=== PATIENT | male | born 1945 | race Caucasian/White ===

== ENCOUNTER 2017-06-29 12:19 | Emergency (ER) | payer OTHER ==
[~2017-06-29] VITALS: Ht 185.4 cm; Wt 104.3 kg
[~2017-06-29 12:19] MED LIST: ANTIVERT25 MG PO; ASPIR 8181 MG; ASPIRIN325 PO; ATORVASTATIN CA40 MG PO; TOPROL XL25 MG PO; ZOFRAN ODT4 MG PO
[2017-06-29] MEDS ORDERED: ELIQUIS5 MG PO (13:03)
[2017-06-29 13:50] LABS: ABSOLUTE NEUTROPHILS 2.1 thou/uL (1.4-8.2); BASOPHILS 0.4 % (0.0-2.0); HEMATOCRIT 42.6 % (42.0-52.0); HEMOGLOBIN 14.9 gm/dL (14.0-18.0); LYMPHOCYTES 20.1 % (24.0-44.0); MCH 29.5 pg (26.0-34.0); MCHC 34.9 g/dL (28.0-37.0); MCV 84.5 fL (80.0-100.0); MONOCYTES 9.9 % (1.0-8.0); PLATELET COUNT 139 thou/uL (150-400); POLYS 69.6 % (36.0-66.0); RBC 5.04 mil/uL (4.50-6.00); RDW 13.5 % (10.5-14.5)
[2017-06-29 13:56] LABS: URINE BLOOD 3+ (Negative); URINE CLARITY CLOUDY; URINE COLOR YELLOW; URINE GLUCOSE-RANDOM* NEGATIVE (Negative); URINE KETONES TRACE (Negative); URINE LEUKOCYTES-REFLEX NEGATIVE (Negative); URINE NITRITE-REFLEX NEGATIVE (Negative); URINE PROTEIN (DIPSTICK) 1+ (Negative); URINE SPECIFIC GRAVITY >= 1.030 (1.005-1.035); URINE UROBILINOGEN 0.2 E.U./dl (0.2-1.0)
[2017-06-29 13:58] LABS: ICTOTEST (BILI CONFIRMATORY) Negative (Negative); URINE BILIRUBIN NEGATIVE (Negative)
[2017-06-29 13:59] LABS: CALCIUM 8.9 mg/dL (8.5-10.1); POTASSIUM 3.4 mmol/L (3.5-5.1)
[2017-06-29 14:05] LABS: ALBUMIN 4.1 g/dL (3.4-5.0); DIRECT BILIRUBIN 0.2 mg/dL (<0.1-0.3); TOTAL BILIRUBIN 0.6 mg/dL (<0.1-1.0); TOTAL PROTEIN 7.6 g/dL (6.4-8.2)
[2017-06-29 14:12] LABS: MUCUS >6 Heavy strn/LPF (None Seen); SQUAMOUS 0-3 Few /LPF (0-3); URINE RBC >20 Many /HPF (0-2)
[2017-06-29 14:13] LABS: CASTS None Seen /LPF (None Seen); CRYSTALS None Seen /LPF (None Seen); URINE WBC-REFLEX 0-5 Rare /HPF (0-5)
[2017-06-29 14:14] LABS: BACTERIA-REFLEX None Seen /HPF (None Seen)
[2017-06-29] MEDS ORDERED: ZOFRAN ODT4 MG PO (15:50)
[2017-06-29 16:14] VITALS: BP 181/97
== END 2017-06-29 16:17 | disposition home or self-care (01) ==
LOC: ER 12:19
PROVIDERS: Emergency Medicine
DX: K52.9 Noninfective gastroenteritis and colitis, unspecified (principal); K21.9 Gastro-esophageal reflux disease without esophagitis; G47.30 Sleep apnea, unspecified; Z95.5 Presence of coronary angioplasty implant and graft; Z88.8 Allergy status to other drugs, medicaments and biological substances

== ENCOUNTER 2017-07-04 08:50 | Inpatient (IN) | payer OTHER ==
[~2017-07-04] VITALS: Ht 182.9 cm; Wt 107.7 kg
[~2017-07-04 08:50] MED LIST changes: +ELIQUIS5 MG PO
[2017-07-04 12:50] VITALS: BP 141/79
[2017-07-04] MEDS ORDERED: ASPIR 8181 MG PO (16:05)
[2017-07-04] MEDS ORDERED: PREVACID 24HR15 MG PO (16:05)
[2017-07-04 19:45] VITALS: BP 127/65
[2017-07-05 04:30] VITALS: BP 142/88
[2017-07-05 07:30] VITALS: BP 164/93
[2017-07-05 07:48] VITALS: BP 156/71
[2017-07-05 09:11] LABS: HEMOGLOBIN 12.9 gm/dL (14.0-18.0); MCH 29.7 pg (26.0-34.0); MCHC 35.8 g/dL (28.0-37.0); MCV 83.1 fL (80.0-100.0); RBC 4.33 mil/uL (4.50-6.00); RDW 13.6 % (10.5-14.5); WBC 3.2 thou/uL (4.0-11.0)
[2017-07-05 09:29] LABS: CALCIUM 7.9 mg/dL (8.5-10.1); CREATININE 0.8 mg/dL (0.7-1.3); POTASSIUM 3.3 mmol/L (3.5-5.1); TOTAL BILIRUBIN 0.7 mg/dL (<0.1-1.0); TOTAL PROTEIN 6.2 g/dL (6.4-8.2)
[2017-07-05 15:24] VITALS: BP 150/81
[2017-07-05 19:48] VITALS: BP 144/70
[2017-07-06 04:22] VITALS: BP 139/70
[2017-07-06 07:09] VITALS: BP 156/77
[2017-07-06 15:23] VITALS: BP 138/76
[2017-07-06 19:24] VITALS: BP 126/62
[2017-07-07 04:00] VITALS: BP 143/77
[2017-07-07 08:15] VITALS: BP 138/84
[2017-07-07] MEDS ORDERED: PREDNISONE 10 M10 MG PO (08:21)
[2017-07-07] MEDS ORDERED: BENZONATATE100 MG PO (08:21)
[2017-07-07 08:26] VITALS: BP 143/77
== END 2017-07-07 11:34 | disposition home or self-care (01) | DRG 683 ==
LOC: RAD 08:50 → 4N 12:37
PROVIDERS: Family Medicine
DX: N17.9 Acute kidney failure, unspecified (principal); N20.2 Calculus of kidney with calculus of ureter; N40.0 Benign prostatic hyperplasia without lower urinary tract symptoms; J20.9 Acute bronchitis, unspecified; K21.9 Gastro-esophageal reflux disease without esophagitis; Z95.5 Presence of coronary angioplasty implant and graft; Z88.8 Allergy status to other drugs, medicaments and biological substances; Z85.46 Personal history of malignant neoplasm of prostate; Z79.899 Other long term (current) drug therapy
CPT/HCPCS: 10790

== ENCOUNTER → 2017-08-21 | Outpatient (CLI) | payer OTHER ==
[~2017-08-21] MED LIST changes: +ASPIR 8181 MG PO; +BENZONATATE100 MG PO; +PREDNISONE 10 M10 MG PO; +PREVACID 24HR15 MG PO
--- NOTE | ~2017-08-21 | EKG ---
[place] [address] [facility] [place] [address] ELECTROCARDIOGRAM REPORT Name: SHAHRAM ANDRADE Room #: REG CLI Ana#: [id number] Admission: 08/21/17 Attend Phys: David Bowman MD Discharge: Date of : 41 Report #: [id number] THIS REPORT FOR: //name// [facility] Test Date: 2017-08-21 Test Time: 09:16:15 Pat Name: SHAHRAM ANDRADE Department: Room: Gender: M Design Analyst: AGUSTIN : 1945 Requested By: David Bowman Order Number: [id number] MD: Stanley Martinez Measurements Intervals [place] Rate: 85 P: 58 [place]: 143 QRS: -8 QRSD: 92 T: 24 QT: 378 QTc: 450 Interpretive Statements Sinus rhythm Abnormal R-wave progression, early transition Compared to ECG 04/01/2016 11:11:29 Atrial premature complex(es) no longer present Right ventricular hypertrophy no longer present Electronically Signed On 08-21-2017 10:20:13 CDT by Stanley Martinez [email or web address] <ELECTRONICALLY SIGNED> By: Stanley Martinez MD 08/21/17 1020 5 5 Stanley Martinez MD /TERELL
== END ==
LOC: LITH 08:56
DX: Z53.9 Procedure and treatment not carried out, unspecified reason (principal)

== ENCOUNTER → 2017-09-02 | Outpatient (CLI) | payer OTHER | LOC: RAD 05:52 | DX: N20.2 Calculus of kidney with calculus of ureter (principal); M47.896 Other spondylosis, lumbar region ==

== ENCOUNTER 2019-06-26 12:38 | Emergency (ER) | payer OTHER ==
[~2019-06-26] VITALS: Ht 185.4 cm; Wt 102.1 kg
[2019-06-26 14:14] LABS: ABSOLUTE NEUTROPHILS 2.7 thou/uL (1.4-8.2); BASOPHILS 0.4 % (0.0-2.0); EOSINOPHILS 0.8 % (0.0-3.0); HEMATOCRIT 42.7 % (42.0-52.0); HEMOGLOBIN 14.5 gm/dL (14.0-18.0); LYMPHOCYTES 41.6 % (24.0-44.0); MCH 29.9 pg (26.0-34.0); MCHC 33.9 g/dL (28.0-37.0); MCV 88.2 fL (80.0-100.0); MONOCYTES 5.2 % (1.0-8.0); PLATELET COUNT 168 thou/uL (150-400); RBC 4.84 mil/uL (4.50-6.00); RDW 13.3 % (10.5-14.5); WBC 5.1 thou/uL (4.0-11.0)
[2019-06-26 14:28] LABS: ANION GAP 9 mmol/L (7-16); BUN 12 mg/dL (7-18); CALCIUM 8.8 mg/dL (8.5-10.1); CHLORIDE 104 mmol/L (98-107); CO2 28 mmol/L (21-32); CREATININE 0.9 mg/dL (0.7-1.3); GLUCOSE 131 mg/dL (74-106); POTASSIUM 4.6 mmol/L (3.5-5.1); SODIUM 141 mmol/L (136-145)
[2019-06-26 14:35] LABS: ALBUMIN 4.1 g/dL (3.4-5.0); SGOT 24 U/L (15-37); SGPT 38 U/L (30-65); TOTAL BILIRUBIN 0.7 mg/dL (<0.1-1.0); TROPONIN-I <0.06 ng/mL (<0.06)
[2019-06-26 14:59] LABS: URINE BILIRUBIN NEGATIVE (Negative); URINE BLOOD NEGATIVE (Negative); URINE CLARITY CLEAR; URINE COLOR YELLOW; URINE GLUCOSE-RANDOM* NEGATIVE (Negative); URINE KETONES NEGATIVE (Negative); URINE LEUKOCYTES-REFLEX NEGATIVE (Negative); URINE NITRITE-REFLEX NEGATIVE (Negative); URINE PROTEIN (DIPSTICK) NEGATIVE (Negative); URINE UROBILINOGEN 0.2 E.U./dl (0.2-1.0)
[2019-06-26 15:08] LABS: AMP/METHAMP Negative (Negative); BARBITURATES Negative (Negative); BENZODIAZEPINES Negative (Negative); COCAINE Negative (Negative); METHADONE Negative (Negative); OPIATES Negative (Negative); PCP Negative (Negative)
[2019-06-26] MEDS ORDERED: VALIUM2 MG PO (15:29)
[2019-06-26 16:11] VITALS: BP 157/84
--- NOTE | 2019-07-01 12:32 | EKG ---
[facility] [address] [address] ELECTROCARDIOGRAM REPORT Name: SHAHRAM ANDRADE [facility] [id number] Admission: 06/26/19 Attend Phys: Discharge: 06/26/19 Date of : 41 Report #: [id number] THIS REPORT FOR: cc: Sd White MD, Neal A. MD Lundgren,Moshe Carbajal MD [facility] ~ THIS REPORT FOR: //name// [facility] ED Test Date: 2019-06-26 Test Time: 12:47:23 Pat Name: SHAHRAM ANDRADE Department: Room: Gender: Warehouse Packer: SHANITA : 1945 Requested By: Leandro Camargo Order Number: [id number] MD: Moshe Kaur Measurements Intervals [place] Rate: 76 P: 75 [place]: 166 QRS: -7 QRSD: 82 T: 50 QT: 409 QTc: 460 Interpretive Statements Sinus rhythm Ventricular premature complex Early R-wave progression Artifact in lead(s) I,II,III,aVL,aVF,V1,V2,V3,V4,V6 Compared to ECG 08/21/2017 09:16:15 Ventricular premature complex(es) now present Electronically Signed On 06-26-2019 17:31:30 COMPLAINT ADJUSTER by Moshe Kaur [email or web address] <ELECTRONICALLY SIGNED> By: Moshe Kaur MD, [facility] 06/26/19 1731 1247 [id number] Moshe Kaur MD, [facility] /EPI
== END 2019-06-26 16:12 | disposition home or self-care (01) ==
LOC: ER 12:38
PROVIDERS: Emergency Medicine
DX: H81.12 Benign paroxysmal vertigo, left ear (principal); Z88.8 Allergy status to other drugs, medicaments and biological substances; G47.30 Sleep apnea, unspecified; Z79.899 Other long term (current) drug therapy

== ENCOUNTER 2019-06-29 20:16 | Emergency (ER) | payer OTHER ==
[~2019-06-29] VITALS: Ht 190.5 cm; Wt 117.9 kg
[~2019-06-29 20:16] MED LIST changes: +VALIUM2 MG PO
[2019-06-29] MEDS ORDERED: SILDENAFIL20 MG PO (22:32)
[2019-06-29] MEDS ORDERED: MECLIZINE HCL25 M1 PO (22:33)
[2019-06-30] MEDS ORDERED: PROMS25 WY RECTAL (00:47)
[2019-06-30] MEDS ORDERED: MECLIZINE HCL25 M1 PO (00:47)
[2019-06-30] MEDS ORDERED: REGLAN 10 MG TA10 MG PO (00:47)
[2019-06-30 01:40] VITALS: BP 136/76
== END 2019-06-30 01:40 | disposition home or self-care (01) ==
LOC: ER 20:16
DX: H81.392 Other peripheral vertigo, left ear (principal); K21.9 Gastro-esophageal reflux disease without esophagitis; G47.30 Sleep apnea, unspecified; Z90.49 Acquired absence of other specified parts of digestive tract; Z88.8 Allergy status to other drugs, medicaments and biological substances

== ENCOUNTER → 2019-07-20 | Outpatient (CLI) | payer OTHER ==
[~2019-07-20] MED LIST changes: +MECLIZINE HCL25 M1 PO; +PROMS25 WY RECTAL; +REGLAN 10 MG TA10 MG PO; +SILDENAFIL20 MG PO
== END ==
LOC: ULTRA 13:18
DX: N28.1 Cyst of kidney, acquired (principal); I10 Essential (primary) hypertension

== ENCOUNTER → 2019-07-22 | Outpatient (CLI) | payer OTHER | LOC: SJCVC 10:55 | DX: I25.10 Atherosclerotic heart disease of native coronary artery without angina pectoris (principal); I48.0 Paroxysmal atrial fibrillation; E78.5 Hyperlipidemia, unspecified; I63.429 Cerebral infarction due to embolism of unspecified anterior cerebral artery; G47.33 Obstructive sleep apnea (adult) (pediatric); E78.00 Pure hypercholesterolemia, unspecified; Z79.01 Long term (current) use of anticoagulants; Z95.1 Presence of aortocoronary bypass graft; Z90.49 Acquired absence of other specified parts of digestive tract; Z79.82 Long term (current) use of aspirin; Z79.899 Other long term (current) drug therapy ==

== ENCOUNTER → 2021-07-11 | Outpatient (CLI) | payer OTHER | LOC: ULTRA 08:58 | PROVIDERS: ATTEND Family Medicine | DX: N28.1 Cyst of kidney, acquired (principal); I70.0 Atherosclerosis of aorta ==

== ENCOUNTER → 2021-07-17 | Outpatient (CLI) | payer OTHER | LOC: CAT 10:42 | PROVIDERS: ATTEND Family Medicine | DX: C78.7 Secondary malignant neoplasm of liver and intrahepatic bile duct (principal); E27.9 Disorder of adrenal gland, unspecified ==